=== PATIENT | female | born 1960 | race Hispanic/Latino ===

== ENCOUNTER 2020-01-12 18:30 | Observation (INO) | payer SELFPAY ==
[~2020-01-12] VITALS: Ht 157.5 cm; Wt 81.2 kg
--- OUTSIDE RECORDS SUMMARY | 2020-01-12 18:32 | XMS REPORT ---
Author Author [facility] Organization [facility] Address Unknown Phone Unavailable Care Team Providers Care Equip Maint Eng Name Role Phone Unavailable Unavailable Problems This patient has no known problems. Allergies, Adverse Reactions, Alerts This patient has no known allergies or adverse reactions. Medications This patient has no known medications. Encounters Start Date/Time End Date/Time Encounter Type Admission Type [facility] Care Department Encounter ID 2018-10-18 00:00:00 2018-10-18 00:00:00 Outpatient [facility] [id number] 2018-10-12 00:00:00 2018-10-12 00:00:00 Outpatient [facility] [id number] 2018-08-27 00:00:00 2018-08-27 00:00:00 Outpatient [facility] [id number] 2018-07-29 00:00:00 2018-07-29 00:00:00 Outpatient [facility] [id number] 2018-07-27 09:54:25 2018-07-27 09:54:25 Outpatient [facility] [id number] 2018-07-22 00:00:00 2018-07-22 00:00:00 Outpatient [facility] [id number] 2018-07-20 00:00:00 2018-07-20 00:00:00 Outpatient [facility] [id number] 2018-07-16 07:56:06 2018-07-16 07:56:06 Outpatient [facility] [id number] 2018-07-16 00:00:00 2018-07-16 00:00:00 Outpatient [facility] [id number] 2018-05-26 10:12:51 2018-05-26 10:12:51 Outpatient [facility] [id number] 2018-05-20 13:38:58 2018-05-20 13:38:58 Outpatient [facility] [id number] 2018-05-20 11:30:42 2018-05-20 11:30:42 Outpatient [facility] [id number] 2018-05-06 00:00:00 2018-05-06 00:00:00 Outpatient [facility] [id number] 2018-05-04 07:48:47 2018-05-04 07:48:47 Outpatient [facility] [id number] 2018-02-24 07:45:13 2018-02-24 07:45:13 Outpatient [facility] [id number] 2018-02-16 11:19:31 2018-02-16 11:19:31 Outpatient [facility] [id number] 2018-02-16 08:56:55 2018-02-16 08:56:55 Outpatient [facility] [id number] 2018-02-09 07:23:30 2018-02-09 07:23:30 Outpatient [facility] [id number] 2017-11-24 00:00:00 2017-11-24 00:00:00 Outpatient [facility] [id number] 2017-11-16 14:30:01 2017-11-16 14:30:01 Outpatient [facility] [id number] 2017-11-16 13:06:55 2017-11-16 13:06:55 Outpatient [facility] [id number] 2017-11-02 00:00:00 2017-11-02 00:00:00 Outpatient [facility] [id number] 2017-10-15 14:50:51 2017-10-15 14:50:51 Outpatient [facility] [id number] 2017-10-14 14:51:28 2017-10-14 14:51:28 Emergency [facility] [id number] 2017-10-14 14:36:47 2017-10-14 14:36:47 Emergency [facility] [id number] 2017-10-14 13:50:37 2017-10-14 13:50:37 Outpatient [facility] [id number] 2017-08-01 11:53:45 2017-08-01 11:53:45 Emergency [facility] [id number]
[2020-01-12 19:14] LABS: BASOPHILS # (AUTO) 0.1 (0.0-0.1); BASOPHILS % 0.4 % (0.0-1.0); EOSINOPHILS # (AUTO) 0.3 (0.0-0.4); EOSINOPHILS % 1.6 % (0.0-6.0); HEMATOCRIT 40.3 % (34.2-44.1); HEMOGLOBIN 13.6 g/dL (12.0-16.0); LYMPHOCYTES # (AUTO) 2.9 (1.0-3.2); LYMPHOCYTES % 17.7 % (18.0-39.1); MEAN CORPUSCULAR HEMOGLOBIN 29.1 pg (28-32); MEAN CORPUSCULAR HGB CONC 33.7 g/dL (31-35); MEAN CORPUSCULAR VOLUME 86.1 fL (81-99); MONOCYTES # (AUTO) 1.2 (0.2-0.8); MONOCYTES % 7.2 % (4.4-11.3); NEUTROPHILS # (AUTO) 11.8 (2.1-6.9); NEUTROPHILS % 72.6 % (38.7-80.0); PLATELET COUNT 353 x10e3/uL (140-360); RED BLOOD COUNT 4.68 x10e6/uL (3.6-5.1); RED CELL DISTRIBUTION WIDTH 13.4 % (11.7-14.4)
[2020-01-12 19:22] LABS: INR 0.9; PROTHROMBIN TIME 12.7 seconds (11.9-14.5)
[2020-01-12 19:23] LABS: PARTIAL THROMBOPLASTIN TIME 28.1 seconds (23.8-35.5)
[2020-01-12 19:32] LABS: ALANINE AMINOTRANSFERASE 32 IU/L (0-55); ALBUMIN 4.3 g/dL (3.5-5.0); ALBUMIN/GLOBULIN RATIO 1.2 (0.8-2.0); ALKALINE PHOSPHATASE 110 IU/L (40-150); ANION GAP 15.7 mmol/L (8-16); BLOOD UREA NITROGEN 18 mg/dL (7-26); BUN/CREATININE RATIO 20 (6-25); CALCIUM 10.4 mg/dL (8.4-10.2); CARBON DIOXIDE 22 mmol/L (22-29); CHLORIDE 103 mmol/L (98-107); CREATINE KINASE 36 IU/L (29-168); EST GLOMERULAR FILTRATION RATE > 60 ML/MIN (60-); GLUCOSE 223 mg/dL (74-118); POTASSIUM 3.7 mmol/L (3.5-5.1); SODIUM 137 mmol/L (136-145)
[2020-01-12] MEDS ORDERED: SODIUM CHLORIDE 0.9% 1000ML 1,000 ML IV STA (19:32)
--- NOTE | 2020-01-12 19:55 | Diagnostic Imaging Report ---
History: Head pain Comparison studies: None Technique: Axial images were obtained from the skull base to the vertex. Coronal and sagittal reconstructions obtained from the axial data. Dose modulation, iterative reconstruction, and/or weight based adjustment of the mA/kV was utilized to reduce the radiation dose to as low as reasonably achievable. Findings: Scalp/skull: No abnormalities. No fractures, blastic or lytic lesions. Extra-axial spaces: No masses. No fluid collections. Brain sulci: Appropriate for age. Ventricles: Normal in size and configuration. No hydrocephalus. Parenchyma: No abnormal densities. No masses, hemorrhage, acute or chronic cortical vascular insults. Sellar/suprasellar region: No abnormalities Craniocervical junction: Patent foramen magnum. No Chiari one malformation. Atherosclerotic calcifications of the carotid siphons. IMPRESSION: No acute abnormalities . Signed by: DR Ector Cedillo M.D. on 01/12/2020 7:52 PM
--- NOTE | 2020-01-12 20:05 | Diagnostic Imaging Report ---
EXAMINATION: CHEST SINGLE (PORTABLE) INDICATION: COMPARISON: None FINDINGS: AP view TUBES and LINES: None. LUNGS/PLEURA: Lungs are well inflated. There is no evidence of pneumonia or pulmonary edema.. There is no pleural effusion or pneumothorax. HEART AND MEDIASTINUM: The cardiomediastinal silhouette is unremarkable. BONES AND SOFT TISSUES: No acute osseous lesion. Soft tissues are unremarkable. UPPER ABDOMEN: No free air under the diaphragm. IMPRESSION: No acute thoracic abnormality. Signed by: Ray Jane MD on 01/12/2020 8:02 PM
[2020-01-12 20:09] LABS: BILIRUBIN,URINE SMALL (NEGATIVE); CLARITY,URINE CLOUDY (CLEAR); COLOR,URINE YELLOW (YELLOW); KETONES,URINE TRACE (NEGATIVE); LEUKOCYTE ESTERASE ,URINE NEGATIVE (NEGATIVE); NITRITE,URINE NEGATIVE (NEGATIVE); PROTEIN,URINE DIPSTICK 1+ (NEGATIVE); URINE UROBILINOGEN 0.2 mg/dL (0.2 - 1)
[2020-01-12 20:19] LABS: AMORPHOUS SEDIMENT,URINE FEW (FEW); BACTERIA,URINE MODERATE /HPF; EPITHELIAL CELLS,URINE FEW /LPF; WBC,URINE (MAN) 0-5 /HPF (0-5)
[2020-01-12] MEDS ORDERED: MORPHINE SULFATE INJ 4 MG/ML INJ 1ML IV PRN (21:00)
[2020-01-12] MEDS ORDERED: CEFTRIAXONE SOD 1 GM/NS 50 ML 50 ML IV SCH (21:00)
[2020-01-12] MEDS ORDERED: ASPIRIN 81 MG CHEW TAB PO ONE (21:00)
[2020-01-12] MEDS ORDERED: MORPHINE SULFATE 2 MG/ML SYR 1ML IV PRN (21:00)
[2020-01-12] MEDS ORDERED: ONDANSETRON HCL INJ 2MG/ML 2ML 2 MG/ML VIAL IV PRN (21:00)
[2020-01-12] MEDS ORDERED: SODIUM CHLORIDE 0.9% 1000ML 1,000 ML ONE (23:25)
[2020-01-13] MEDS ORDERED: GLIPIZIDE10 MG PO (01:53)
[2020-01-13] MEDS ORDERED: TRADJENTA5 MG PO (01:53)
[2020-01-13] MEDS ORDERED: PAROXETINE HCL10 MG PO (01:53)
[2020-01-13] MEDS ORDERED: FLUTICASONE PRO16 GM IN (01:53)
[2020-01-13] MEDS ORDERED: ALPRAZOLAM0.25 MG PO (01:53)
[2020-01-13] MEDS ORDERED: LISINOPRIL-HCT1 EACH PO (01:53)
[2020-01-13] MEDS ORDERED: METFORMIN HCL500 M1 PO (01:53)
[2020-01-13 05:15] LABS: BASOPHILS % 0.3 % (0.0-1.0); EOSINOPHILS # (AUTO) 0.2 (0.0-0.4); EOSINOPHILS % 2.7 % (0.0-6.0); HEMATOCRIT 33.8 % (34.2-44.1); HEMOGLOBIN 11.2 g/dL (12.0-16.0); LYMPHOCYTES # (AUTO) 2.4 (1.0-3.2); MEAN CORPUSCULAR HEMOGLOBIN 28.7 pg (28-32); MEAN CORPUSCULAR HGB CONC 33.1 g/dL (31-35); MEAN CORPUSCULAR VOLUME 86.7 fL (81-99); MONOCYTES # (AUTO) 0.7 (0.2-0.8); MONOCYTES % 8.3 % (4.4-11.3); NEUTROPHILS # (AUTO) 5.5 (2.1-6.9); NEUTROPHILS % 61.5 % (38.7-80.0); PLATELET COUNT 217 x10e3/uL (140-360); RED CELL DISTRIBUTION WIDTH 13.6 % (11.7-14.4)
[2020-01-13 05:39] LABS: CREATINE KINASE 28 IU/L (29-168)
--- NOTE | 2020-01-13 06:02 | Diagnostic Imaging Report ---
EXAMINATION: CHEST SINGLE (PORTABLE) INDICATION: Chest pain COMPARISON: None FINDINGS: AP view TUBES and LINES: None. LUNGS: Lungs are well inflated. Lungs are clear. There is no evidence of pneumonia or pulmonary edema. PLEURA: No pleural effusion or pneumothorax. HEART AND MEDIASTINUM: The cardiomediastinal silhouette is unremarkable. BONES AND SOFT TISSUES: No acute osseous lesion. Soft tissues are unremarkable. UPPER ABDOMEN: No free air under the diaphragm. IMPRESSION: No acute thoracic radiographic abnormality. Signed by: Rafi Manuel MD on 01/13/2020 5:59 AM
[2020-01-13 06:14] LABS: ALANINE AMINOTRANSFERASE 25 IU/L (0-55); ALBUMIN 3.5 g/dL (3.5-5.0); ALKALINE PHOSPHATASE 76 IU/L (40-150); ANION GAP 14.7 mmol/L (8-16); BLOOD UREA NITROGEN 17 mg/dL (7-26); BUN/CREATININE RATIO 25 (6-25); CALCIUM 8.9 mg/dL (8.4-10.2); CARBON DIOXIDE 22 mmol/L (22-29); CHLORIDE 106 mmol/L (98-107); CREATININE, SERUM 0.68 mg/dL (0.57-1.11); EST GLOMERULAR FILTRATION RATE > 60 ML/MIN (60-); GLUCOSE 130 mg/dL (74-118); POTASSIUM 3.7 mmol/L (3.5-5.1); SODIUM 139 mmol/L (136-145)
[2020-01-13] MEDS ORDERED: DOCUSATE SODIUM 100 MG CAP PO PRN (07:15)
--- NOTE | 2020-01-13 07:24 | NUR ---
H&P cc: chest pain HPI: 59yoF, PCP none, developed left sided chest discomfort and left shoulder discomfort and left face pain, ongoing for 1 month. Found to have UTI. PMH: DM2, HTN, Mood d/o PSHx: none Allergies; see emr FH/SH; single; no cigs; meds; see MAR ROS: no f/c/s/N/V/D/FRASER/skin rash/diziness/leg pain/confusion v/s; revd PE nad anicteric ns1s2 modbs soft nt nd left chest wall tenderness; left shoulder tender no edema; awake; skin dry n. affect labs/meds revd A/P: Atypical CP- CE negative x2; check lipids; ASA; echo UTI- treat with ceftriaxone HTN- restart home meds DM2- hab1c/lipids Mood d/o- restart home med Prop: lovenox; pepcid Disp; if echo negative, will treat for musculoskeletal pain. Brian Wilder MD, PhD.
[2020-01-13] MEDS ORDERED: CEFTRIAXONE SOD 1 GM/NS 50 ML 50 ML IV SCH (07:30)
[2020-01-13 07:51] LABS: CHOL/HDL RATIO 3.9 (3.0-3.6)
[2020-01-13] MEDS: FAMOTIDINE 20 MG TAB PO SCH ×2 (07:52→16:50)
--- NOTE | 2020-01-13 08:33 | NUR ---
Recvd patient from ER, AAOx3, Not in any distress, denies any SOB, C/O generalized body pain rating 4/10, on Tele monitoring. Skin intact, call light in reach, keep monitoring
[2020-01-13 08:49] VITALS: BP 116/73
[2020-01-13] MEDS: NON-FORMULARY MEDICATION (Linagliptin (Tradjenta) 5 MG) PO SCH (09:00)
[2020-01-13] MEDS: ALPRAZOLAM 0.25 MG TAB PO SCH (09:30)
[2020-01-13] MEDS: HYDROCHLOROTHIAZIDE 25 MG TAB PO SCH ×2 (09:30→16:50)
[2020-01-13] MEDS: LISINOPRIL 20 MG TAB PO SCH ×2 (09:30→16:50)
[2020-01-13] MEDS: ASPIRIN 325 MG TAB PO SCH (09:31)
[2020-01-13 11:55] VITALS: BP 110/57
[2020-01-13] MEDS: PAROXETINE HCL 20 MG TAB PO SCH (14:40)
[2020-01-13] MEDS: FLUTICASONE PROPIONATE NASAL SPRAY NS SCH (14:40)
[2020-01-13 14:44] LABS: CREATINE KINASE 28 IU/L (29-168)
[2020-01-13 15:35] VITALS: BP 121/72
[2020-01-13] MEDS: ENOXAPARIN SOD INJ 40 MG/0.4 ML SYR SC SCH (18:12)
[2020-01-13] MEDS: MELOXICAM 7.5 MG TAB PO SCH (18:30)
[2020-01-13] MEDS: ACETAMINOPHEN 325 MG TAB PO PRN ×2 (19:41→20:11)
--- NOTE | 2020-01-13 19:44 | NUR ---
recieved pt in bed awake a/o x3 c/o FRASER, med per NOV. Entry Level Management in to see pt. Bed in low position, call light in reach as well as personal items. Will cont to mon
[2020-01-13 20:00] VITALS: BP 142/83
[2020-01-13] MEDS ORDERED: SODIUM CHLORIDE 0.9% 250ML 250 ML ONE (20:50)
[2020-01-13 21:00] VITALS: BP 142/83
[2020-01-13] MEDS ORDERED: ZOLPIDEM TARTRATE 5 MG TAB PO PRN (21:00)
[2020-01-13] MEDS: CEFTRIAXONE SOD 1 GM/NS 50 ML 50 ML IV SCH (21:02)
[2020-01-14] VITALS (8 sets, daily range): BP systolic 104–158; BP diastolic 55–72
--- NOTE | 2020-01-14 00:16 | Consultation ---
DATE OF CONSULTATION: 01/13/2020 Cardiology Consultation CONSULTING PHYSICIAN: Amado Herron MD, Interventional Cardiology. REASON FOR CONSULTATION: Chest discomfort. HISTORY OF PRESENT ILLNESS: A pleasant 59-year-old woman with history of type 2 diabetes mellitus, hypertension, dyslipidemia, morbid obesity, presents with complaints of left-sided neck discomfort, worse with movements of rotation of head and movements of left upper extremity. She also endorses episodes of palpitations, which at time occur with exertion. She denies any exertional component to chest discomfort or dyspnea on exertion. She has observed partial relief of neck and upper chest discomfort with morphine. REVIEW OF SYSTEMS: A 12 system review is negative except for as noted above. ALLERGIES: NO KNOWN DRUG ALLERGIES. PAST MEDICAL HISTORY: As per HPI. SOCIAL HISTORY: No smoking, alcohol, or drugs. FAMILY HISTORY: Noncontributory. PHYSICAL EXAMINATION: VITAL SIGNS: Temperature 98.2, heart rate 72, respiratory rate 18, blood pressure 121/72, O2 saturation 98% on room air. GENERAL: No acute distress. Alert. NECK: No JVD. CHEST: Clear to auscultation. CARDIOVASCULAR: Regular rate and rhythm. Normal S1 and S2. No S3. No S4. No murmurs. No rubs. ABDOMEN: Soft. Bowel sounds positive. EXTREMITIES: No cyanosis, clubbing, or edema. CARDIOVASCULAR MEDICATIONS: Reviewed. Lovenox 40 mg subcu daily, hydrochlorothiazide 12.5 mg b.i.d., lisinopril 20 mg b.i.d., aspirin 325 mg daily. STUDIES: Reviewed. White blood cells 8.9, hemoglobin 11.2, and platelets 217. INR 0.9, PT 12.7, PTT 28. Troponin I negative x3. BNP less than 10. Sodium 139, potassium 3.7, chloride 106, bicarbonate 22, BUN 17, creatinine 0.68, glucose 130, albumin 3.5. Chest x-ray, no acute thoracic abnormality. Head CT, no acute abnormality. Telemetry, sinus rhythm. ASSESSMENT: 1. Chest discomfort and neck discomfort with musculoskeletal type features. 2. Diabetes mellitus type 2. 3. Hypertension. 4. Dyslipidemia. 5. Palpitation. RECOMMENDATIONS: 1. Trial of analgesics and muscle relaxants advised. 2. Blood pressure currently at goal. 3. The patient rule out for DE with serial cardiac enzymes. 4. Keep on telemetry overnight to rule out arrhythmogenic component, so far in sinus rhythm. 5. Outpatient stress test. MD MICHEAL Brandon/MODL /[id number]
--- NOTE | 2020-01-14 05:45 | NUR ---
IM- progress note ROS: see below ROS: no f/c/s/N/V/D/FRASER/skin rash/diziness/leg pain/confusion v/s; revd PE nad anicteric ns1s2 modbs soft nt nd left chest wall tenderness; left shoulder tender no edema; awake; skin dry n. affect labs/meds revd A/P: Atypical CP- CE negative x2; check lipids; ASA; echo UTI- treat with ceftriaxone HTN- restart home meds DM2- hab1c/lipids Mood d/o- restart home med Prop: lovenox; pepcid Disp; if echo negative, will treat for musculoskeletal pain. 5-2 flexeril; outpt stress test planned. Hba1c/LDL 6.7/93 Brian Wilder MD, PhD.
[2020-01-14] MEDS ORDERED: MELOXICAM7.5 MG PO (05:47)
[2020-01-14] MEDS ORDERED: FAMOTIDINE20 MG PO (05:47)
[2020-01-14] MEDS ORDERED: KEFLEX500 MG PO (05:47)
[2020-01-14] MEDS ORDERED: ASPIR 8181 MG PO (05:47)
[2020-01-14] MEDS ORDERED: CYCLOBENZAPRINE5 MG PO (05:49)
--- NOTE | 2020-01-14 06:54 | NUR ---
DAY 2 OBSERVATION. MESSAGE LEFT W/ DR. MYERS REQUESTING DC PLAN, PT DOES NOT APPEAR TO MEET INPATIENT STATUS. AWAITING REPLY.
--- NOTE | 2020-01-14 07:00 | NUR ---
BEDSIDE SHIFT REPORT RECEIVED FROM THE ROLLER HAND RN. EDUCATED PT ABOUT FALL PRECAUTIONS. PT VERBALIZED UNDERSTANDING. CALL LIGHT WITH IN EASY REACH. INSTRUCTED PT TO USE CALL LIGHT FOR ALL THE NEEDS. BED IS LOW AND LOCKED. SIDE RAILS X2. PT DENIES NEEDS AT THIS TIME.
--- NOTE | 2020-01-14 07:29 | NUR ---
SPOKE W/ DR. MYERS AND DISCUSSED PT STATUS AND DC PLAN. HE STATED HE IS DISCHARGING THE PT HOME TODAY.
[2020-01-14] MEDS: FAMOTIDINE 20 MG TAB PO SCH ×2 (08:30→16:26)
[2020-01-14] MEDS: NON-FORMULARY MEDICATION (Linagliptin (Tradjenta) 5 MG) PO SCH (09:00)
[2020-01-14] MEDS: CYCLOBENZAPRINE HCL 10 MG TAB PO SCH ×4 (09:00→22:03)
[2020-01-14] MEDS: ASPIRIN 325 MG TAB PO SCH (09:18)
[2020-01-14] MEDS: HYDROCHLOROTHIAZIDE 25 MG TAB PO SCH ×2 (09:18→16:26)
[2020-01-14] MEDS: ALPRAZOLAM 0.25 MG TAB PO SCH (09:19)
[2020-01-14] MEDS: MELOXICAM 7.5 MG TAB PO SCH (09:19)
[2020-01-14] MEDS: LISINOPRIL 20 MG TAB PO SCH ×2 (09:19→16:26)
[2020-01-14] MEDS: PAROXETINE HCL 20 MG TAB PO SCH (09:20)
[2020-01-14] MEDS: FLUTICASONE PROPIONATE NASAL SPRAY NS SCH (10:00)
--- NOTE | 2020-01-14 10:00 | NUR ---
PT REFUSED MORPHINE PAIN MED.
--- NOTE | 2020-01-14 12:30 | NUR ---
PT C/O DIZZINESS AND PAIN ON UPPER AND LOWER EXTREMITIES. PAGED DR. MYERS AND INFORMED THE SAME.
--- NOTE | 2020-01-14 12:40 | NUR ---
CANCEL DISCHARGE ORDER PER DR. MYERS. MONITOR THE PT ONE MORE DAY.
[2020-01-14] MEDS: ACETAMINOPHEN 325 MG TAB PO PRN ×2 (12:53→20:00)
--- NOTE | 2020-01-14 16:00 | NUR ---
PT C/O PRESSURE AND PAIN ON UPPER LOWER EXTREMITIES. PAGED DR. MYERS AND REPORTED THE SAME. PT IS AAOX4. PT DENIES NEEDS AT THIS TIME.
[2020-01-14] MEDS: ENOXAPARIN SOD INJ 40 MG/0.4 ML SYR SC SCH (16:26)
--- NOTE | 2020-01-14 19:20 | NUR ---
BEDSIDE SHIFT REPORT GIVEN TO THE CNC MACHINE PROGRAMMER RN. PT DENIED FURTHER NEEDS.
--- NOTE | 2020-01-14 19:28 | NUR ---
Received patient in bed awake a/ox3 c/o pressure and general discomfort. Bed in low position, call rodriguez and personal items in reach. Will cont to mon
[2020-01-14] MEDS: CEFTRIAXONE SOD 1 GM/NS 50 ML 50 ML IV SCH (22:04)
[2020-01-15] VITALS: BP 116/65
[2020-01-15] MEDS: ACETAMINOPHEN 325 MG TAB PO PRN ×2 (01:50→08:30)
--- NOTE | 2020-01-15 02:11 | Progress Note ---
DATE: 01/14/2020 Cardiology Progress Note SUBJECTIVE: No chest pain. Neck discomfort, improved. OBJECTIVE: VITAL SIGNS: Temperature 97 degrees, heart rate 73, blood pressure 158/62, respiratory rate 20, O2 saturation 94%, BMI 32.7. GENERAL: No acute distress, alert. NECK: No JVD. CHEST: Clear to auscultation. CARDIOVASCULAR: Regular rate and rhythm. Normal S1, S2. ABDOMEN: Soft. Bowel sounds positive. EXTREMITIES: No edema. CARDIOVASCULAR MEDICATIONS: Reviewed. Lovenox 40 mg subcu daily, lisinopril 20 mg b.i.d., hydrochlorothiazide 12.5 mg b.i.d., aspirin 325 mg daily. STUDIES: Troponin I negative x3. BNP less than 10. Potassium 3.7, BUN 22, creatinine 0.68, glucose 130. White blood cells 8.9, hemoglobin 11.2, platelets 217. TELEMETRY: In sinus rhythm. ASSESSMENT AND PLAN: 1. A 59-year-old woman with chest pain, atypical with musculoskeletal features, type 2 diabetes mellitus with an A1c of 6.7, hypertension, dyslipidemia, palpitations, morbid obesity. Recommend continue current cardiovascular medications. 2. Trial of analgesics and muscle relaxants. 3. Preserved left ventricular systolic function with LVEF more than 70%, impaired LV relaxation, trace tricuspid mitral and pulmonic regurgitation on echocardiogram. Recommend continue risk factor modification and outpatient stress test at a later date. MD MICHEAL Brandon/CARITOL /[id number]
[2020-01-15 04:00] VITALS: BP 130/64
--- NOTE | 2020-01-15 06:41 | NUR ---
Met with Lisy Griffin RN to see why pt did not discharge home yesterday. She stated pt c/o pain to arms and legs, and Dr. Wilder stated to monitor her overnight, and plan discharge this morning.
--- NOTE | 2020-01-15 07:22 | NUR ---
PATIENT IN BED WITH HEAD OF BED ELEVATED WATCHING TV, NO DISTRESS NOTED. BED IN LOWER POSITION, CALL LIGHT AT REACH.
[2020-01-15 07:30] VITALS: BP 121/53
[2020-01-15] MEDS: FAMOTIDINE 20 MG TAB PO SCH (07:30)
[2020-01-15 08:29] VITALS: BP 121/53
[2020-01-15] MEDS: NON-FORMULARY MEDICATION (Linagliptin (Tradjenta) 5 MG) PO SCH (09:00)
[2020-01-15] MEDS: MELOXICAM 7.5 MG TAB PO SCH (09:08)
[2020-01-15] MEDS: LISINOPRIL 20 MG TAB PO SCH (09:08)
[2020-01-15] MEDS: HYDROCHLOROTHIAZIDE 25 MG TAB PO SCH (09:08)
[2020-01-15] MEDS: CYCLOBENZAPRINE HCL 10 MG TAB PO SCH ×2 (09:08→14:52)
[2020-01-15] MEDS: PAROXETINE HCL 20 MG TAB PO SCH (09:08)
[2020-01-15] MEDS: ASPIRIN 325 MG TAB PO SCH (09:08)
[2020-01-15] MEDS: ALPRAZOLAM 0.25 MG TAB PO SCH (09:08)
[2020-01-15] MEDS: FLUTICASONE PROPIONATE NASAL SPRAY NS SCH (09:11)
--- NOTE | 2020-01-15 11:48 | NUR ---
PATIENT SITTING UP IN BED TALKING ON THE PHONE, NO COMPLAIN VOICED. CALL LIGHT AT REACH.
[2020-01-15 11:52] VITALS: BP 115/66
--- NOTE | 2020-01-15 15:30 | NUR ---
PATIENT DISCHARGED HOME. DISCHARGE INSTRUCTIONS, PRESCRIPTIONS, AND FOLLOW UP GIVEN TO PATIENT, SHE VERBALIZED UNDERSTANDING. IV TO LEFT AC REMOVED WITH TIP INTACT. ALL PERSONAL ITEMS TAKEN WITH PATIENT. REFUSED WHEEL CHAIR, BUT WAS ACCOMPANIED BY HOSPITAL STAFF TO FRONT LOBBY IN STABLE CONDITION.
--- NOTE | 2020-01-15 16:27 | Progress Note ---
DATE: Cardiology Progress Note SUBJECTIVE: Denies any chest pain or shortness of breath. OBJECTIVE: VITAL SIGNS: Temperature 97.5, heart rate 64, blood pressure 121/53, respiratory rate 20, O2 saturation 99%, BMI 32.7. GENERAL: In no acute distress, alert. NECK: No JVD. CHEST: Clear to auscultation. CARDIOVASCULAR: Regular rate and rhythm. Normal S1, S2. ABDOMEN: Soft. Bowel sounds positive. EXTREMITIES: No edema. CARDIOVASCULAR MEDICATIONS: Reviewed. Lovenox 40 mg subcu daily, lisinopril 20 mg b.i.d., hydrochlorothiazide 12.5 mg daily, aspirin 325 mg daily. STUDIES: Reviewed. Creatinine 0.6. Hemoglobin 11.2, platelets 217. ASSESSMENT AND PLAN: 1. A 59-year-old woman presents with atypical chest discomfort, neck discomfort, worse with movements, musculoskeletal type pattern. 2. Hypertension, diabetes, dyslipidemia. Recommend continue current cardiovascular medications. Outpatient stress test. Okay to discharge from a cardiovascular standpoint. MD MICHEAL Brandon/MAMADOU /[id number]
--- NOTE | 2020-01-15 17:56 | NUR ---
D/C summary Principal Dx: Atypical CP- CE negative x2; check lipids; ASA; echo UTI- treat with ceftriaxone Secondary dx: HTN- restart home meds DM2- hab1c/lipids Mood d/o- restart home med Prop: lovenox; pepcid Disp; if echo negative, will treat for musculoskeletal pain. 5-2 flexeril; outpt stress test planned. Hba1c/LDL 6.7/93 d/c home f/u pcp 1 week and 2 days for stress test stable d/c>35mins Brian Wilder MD, PhD.
== END 2020-01-15 15:26 | disposition home or self-care (01) ==
LOC: ER 18:30 → ERHOLD 20:51 → MED/SURG3 01-13 08:10
PROVIDERS: ADMIT Internal Medicine; ATTEND Internal Medicine
DX: R07.89 Other chest pain (principal); N39.0 Urinary tract infection, site not specified; I10 Essential (primary) hypertension; E11.9 Type 2 diabetes mellitus without complications; F39 Unspecified mood [affective] disorder; E78.5 Hyperlipidemia, unspecified; E66.01 Morbid (severe) obesity due to excess calories; R00.2 Palpitations; Z68.32 Body mass index [BMI] 32.0-32.9, adult
CPT/HCPCS: 36415 ×4; 70450; 71045 ×2; 80053 ×2; 80061; 81001; 82550 ×2; 82553 ×2; 82948 ×3; 83036; 83605; 83880; 84484 ×2; 85025 ×2; 85610; 85730; 87040; 87086; 93005; 93306; 99284; G0378 ×4; J0696 ×3; J1650 ×2; J2270; J2405; J7030; J7050

== ENCOUNTER 2020-01-23 21:42 | Emergency (ER) | payer SELFPAY ==
[~2020-01-23] VITALS: Ht 157.5 cm; Wt 81.2 kg
[~2020-01-23 21:42] MED LIST: ALPRAZOLAM0.25 MG PO; ASPIR 8181 MG PO; CYCLOBENZAPRINE5 MG PO; FAMOTIDINE20 MG PO; FLUTICASONE PRO16 GM IN; GLIPIZIDE10 MG PO; KEFLEX500 MG PO; LISINOPRIL-HCT1 EACH PO; MELOXICAM7.5 MG PO; METFORMIN HCL500 M1 PO; PAROXETINE HCL10 MG PO; TRADJENTA5 MG PO
--- OUTSIDE RECORDS SUMMARY | 2020-01-23 21:45 | XMS REPORT | Clinical Summary ---
Author Author [facility] Organization [facility] Address Unknown Phone Unavailable Care Team Providers Care Commission Sales Associate Name Role Phone Brigette Kaufman MD PCP Allergies Comments Active Allergy Reactions Severity Noted Date Hydroxyzine Hcl Nausea and 02/16/2018 Vomiting Leg numbness Atorvastatin Other 07/27/2018 Medications End Date Status Medication Sig Dispensed Refills Start Date Active aspirin (ASPIRIN) 81 mg Chew and 30 tablet 2 chewable swallow 1 8 tabletIndications: Chest tablet by pressure mouth daily. Active blood glucose Use as 1 Kit 0 meterIndications: Type II directed.. 8 diabetes mellitus, well controlled Active lancets 28 Use 2 times 100 Each 1 gaugeIndications: Type II weekly as 8 diabetes mellitus, well directed. controlled Active blood glucose test 2 times 50 Each 3 05/20/2 01 stripsIndications: Type weekly Use 2 8 II diabetes mellitus, times weekly well controlled (once per day on Thu,) to test blood sugar. Active ibuprofen (MOTRIN) 400 mg Take 1 tablet 270 tablet 1 tabletIndications: by mouth 8 Chronic left-sided every 6 hours headaches as needed for Pain With food. Active azelastine (OPTIVAR) 0.05 Instill 1 6 mL 3 % ophthalmic Drop in each 8 solutionIndications: Eye eye 2 times irritation daily. Active blood glucose meter Use as 1 Kit 0 (PRECISION XTRA directed.. 9 GLUCOMETER)Indications: Uncontrolled type 2 diabetes mellitus without complication, without long-term current use of insulin Active blood glucose (PRECISION Use 2 times 50 Each 3 0 XTRA TEST STRIPS) test weekly (once 9 stripsIndications: per day on Uncontrolled type 2 Thu,) to diabetes mellitus without test blood complication, without sugar. long-term current use of insulin Active lancets 28 Use 2 times 100 Each 1 gaugeIndications: weekly as 9 Uncontrolled type 2 directed. diabetes mellitus without complication, without long-term current use of insulin Active lisinopriL-hydrochlorothi Take 2 180 tablet 3 azide (ZESTORETIC) tablets by 9 20-12.5 mg per mouth daily tabletIndications: For blood Essential hypertension pressure. Active glipiZIDE (GLUCOTROL) 10 Take 1 tablet 180 tablet 3 mg tabletIndications: by mouth 2 9 Uncontrolled type 2 times daily diabetes mellitus without (before complication, without meals) For long-term current use of diabetes. insulin [place]. Active linaGLIPtin (TRADJENTA) 5 Take 1 tablet 90 tablet 3 mg tabletIndications: by mouth 9 Uncontrolled type 2 daily For diabetes mellitus without diabetes. complication, without [place] long-term current use of label. insulin Active metFORMIN (GLUCOPHAGE XR) Take 2 360 tablet 3 500 mg ER extended tablets by 9 release mouth 2 times tabletIndications: Type daily For II diabetes mellitus, diabetes. well controlled Active FLUoxetine (PROZAC) 20 mg Take 1 tab po 180 capsule 1 capsuleIndications: daily for one 9 Anxiety, generalized week, then 2 daily for anxiety. Active SUMAtriptan (IMITREX) 50 Take 1 tablet 9 tablet 3 mg tabletIndications: by mouth at 9 Chronic left-sided onset of headaches headache. Repeat after 2 hours if needed. Maximum 200mg/24 hours.. Active pravastatin (PRAVACHOL) Take 1 tablet 90 tablet 3 20 mg tabletIndications: by mouth at 9 Pure hypercholesterolemia bedtime nightly For cholesterol. Active ergocalciferol (VITAMIN Take 1 12 capsule 2 D2) 1,250 mcg (50,000 capsule by 0 unit) capsuleIndications: mouth weekly. Vitamin D deficiency Active amitriptyline (ELAVIL) 25 Take 2 60 tablet 3 mg tabletIndications: tablets by 0 Complicated migraine mouth at bedtime nightly. 02/17/2019 Discontinued (Therapy comple donnell) ACETAMINOPHEN (TYLENOL Take by 0 OR) mouth. 05/19/2019 Discontinued (Reorder) FLUoxetine (PROZAC) 20 mg Take 1 tab po 180 capsule 1 capsuleIndications: daily for one 8 Anxiety, generalized week, then 2 daily for anxiety. 02/17/2019 Discontinued (Reorder) metFORMIN (GLUCOPHAGE XR) Take 2 360 tablet 3 500 mg ER extended tablets by 8 release mouth 2 times tabletIndications: Type daily For II diabetes mellitus, diabetes. well controlled 02/17/2019 Discontinued (Therapy comple donenll) pravastatin (PRAVACHOL) Take 1 tablet 30 tablet 3 20 mg tabletIndications: by mouth at 8 Pure hypercholesterolemia bedtime nightly For cholesterol 02/17/2019 Discontinued (Therapy comple donnell) ciclesonide (ZETONNA) 37 Use 1 [place] 6.1 g 5 1 mcg/actuation nasal HFA in each 8 inhalerIndications: nostril Seasonal allergic daily. rhinitis due to pollen 02/17/2019 Discontinued (Reorder) ergocalciferol (VITAMIN Take 1 24 capsule 1 D2) 50,000 unit capsule by 9 capsuleIndications: mouth 2 times Vitamin D deficiency weekly. 02/17/2019 Discontinued (Dose adjustmen t) lisinopril-hydrochlorothi Take 1 tablet 90 tablet 0 azide (PRINZIDE, by mouth 9 ZESTORETIC) 20-12.5 mg daily For per tabletIndications: blood Numbness, Chest pressure pressure 06/29/2019 Discontinued (Reorder) ergocalciferol (VITAMIN Take 1 12 capsule 2 D2) 50,000 unit capsule by 9 capsuleIndications: mouth weekly. Vitamin D deficiency 02/24/2019 terconazole (TERAZOL 3) Insert 1 20 g 0 0.8 % vaginal Applicator 9 creamIndications: Yeast vaginally at vaginitis bedtime nightly for 3 days. 08/09/2019 Discontinued (Dose adjustmen t) SUMAtriptan (IMITREX) 25 Take 1 tablet 9 tablet 3 mg tabletIndications: by mouth at 9 Chronic left-sided onset of headaches headache. Repeat after 2 hours if needed. Maximum 200mg/24 hours.. 10/26/2019 Discontinued (Reorder) ergocalciferol (VITAMIN Take 1 12 capsule 2 D2) 50,000 unit capsule by 9 capsuleIndications: mouth weekly. Vitamin D deficiency 11/29/2019 Discontinued amitriptyline (ELAVIL) 25 Please take 60 tablet 5 mg tabletIndications: medication as 9 Complicated migraine per instructions given to you in clinic and titrate upto 2 tablets at bedtime.. 11/08/2019 promethazine (PHENERGAN) Take 1/ 15 tablet 1 1 25 mg tabletIndications: tablet by 9 Complicated migraine mouth daily for 60 days. Active Problems Problem Noted Date Seasonal allergic rhinitis due to pollen 07/27/2018 Pure hypercholesterolemia 02/16/2018 Uncontrolled type 2 diabetes mellitus without complic ation, without 02/16/2018 long-term current use of insulin Vitamin D deficiency 02/16/2018 Anxiety, generalized 11/16/2017 Depression, reactive 11/16/2017 Complicated migraine 06/11/2012 Essential hypertension Resolved Problems Problem Noted Date Resolved Date Chronic left-sided headaches 05/20/2018 9 Encounters Care Team Description Date Type Specialty Brigette Kaufman MD Vitamin D deficiency 10/26/2019 Orders Only Family Practice 10/10/2019 Ancillary Radiology Procedure Adelia Solis MD Uncontrolled type 2 diabetes mellitus wi thout complication, without long-term current use of insulin (Primary Dx); Complicated migraine; Depression, reactive; Anxiety, generalized; Pure hypercholesterolemia 09/09/2019 Office Visit Neurology Brigette Kaufman MD Type II diabetes mellitus, well controll ed (Primary Dx); Essential hypertension; Need for influenza vaccination; Screen for colon cancer; Encounter for vaccination; Chronic left-sided headaches; Pure hypercholesterolemia; Vitamin D deficiency 08/09/2019 Office Visit Family Practice Brigette Kaufman MD Vitamin D deficiency 06/29/2019 Orders Only [facility] Brigette Kaufman MD Norman, Dora, RN Encounter for education (Primary Dx) 06/28/2019 Patient Patient Education Education Brigette Kaufman MD Anxiety, generalized 05/19/2019 Refill Family Practice Ade Shaw LD 04/15/2019 Nutrition Nutrition Juana Franco RN 04/15/2019 Clinical Case Social Work Mgt Brigette Kaufman MD Norman, Dora, RN Encounter for education (Primary Dx) 04/12/2019 Patient Patient Education Education Brigette Kuafman MD Uncontrolled type 2 diabetes mellitus wi thout complication, without long-term current use of insulin (Primary Dx); Screen for colon cancer; Essential hypertension; Chronic left-sided headaches 04/12/2019 Office Visit Family Practice Brigette Kaufman MD Norman, Dora, MUSTAPHA Encounter for education (Primary Dx) 04/06/2019 Patient Patient Education Education Brooke Mathias, [facility] Non-insulin dependent type 2 diabetes me llitus (Primary Dx) 03/31/2019 Office Visit Clinical Pharmacy Brigette Kaufman MD Martinez, Betty A, UX ENGINEER 03/03/2019 Nurse Only Angely Dhillon, INFORMATICS PHYSICIAN 03/03/2019 Clinical Case Social Work Mgt Brigette Kaufman MD Screening for breast cancer 02/28/2019 Ancillary Radiology Procedure Brigette Kaufman MD Screen for colon cancer 02/24/2019 Orders Only [facility] Brigette Kaufman MD Norman, Dora, photographic reproduction technician education, encounter for (Prima ry Dx) 02/22/2019 Patient Patient Education Education Ade Shaw, MIKI 02/22/2019 Nutrition Nutrition Maria E Blount RN 02/22/2019 Patient Patient Education Education Jorge Luis Benitez MERCEDES (generalized anxiety disorder) (Prim radha Dx) 02/21/2019 Office Visit Psychology Brigette Kaufman MD 02/18/2019 Ancillary Radiology Procedure Brigette Kaufman MD Norman, Dora, photographic reproduction technician education, encounter for (Prima ry Dx) 02/17/2019 Patient Patient Education Education Brigette Kaufman MD Uncontrolled type 2 diabetes mellitus wi thout complication, without long-term current use of insulin (Primary Dx); Screening for breast cancer; Screen for colon cancer; Essential hypertension; Chronic left-sided headaches; Dietary counseling for Above / Below Normal BMI; Exercise counseling for Above Normal BMI Only!; Vitamin D deficiency; Yeast vaginitis; Anxiety, generalized; Type II diabetes mellitus, well controlled 02/17/2019 Office Visit Family Practice Brigette Kaufman MD Anxiety, generalized 02/17/2019 Orders Only [facility] Ade Shaw, MIKI 02/17/2019 Nutrition Nutrition after 01/22/2019 Immunizations Name Administration Dates Next Due Influenza Vaccine, 10/15/2017 Seasonal, Injectable Influenza, 07/27/2018 Vaccine<FLUCELVAX>(Multi- Dose) Tdap (Tetanus Toxoid, 03/08/2014 Reduced Diphtheria Toxoid And Acellular Pertussis, Absorbed) Family History Relation Name Status Comments Brother Alive 2 brothers Father Mother Sister Alive 2 sisters Social History Date Tobacco Use Types Packs/Day Years Used Never Smoker Smokeless Tobacco: Never Used Tobacco Cessation: Counseling Given: No Drinks/Week oz/Week Comments Alcohol Use No Food Insecurity Answer Date Recorded Within the past 12 months, you worried that your Never kris e 07/27/2018 food would run out before you got money to buy more. Within the past 12 months, the food you bought Never true 07/27/2018 just didn't last and you didn't have mo brisa to get more. Sex Assigned at Date Recorded Not on file Industry Job Start Date Occupation Not on file Not on file Not on file Travel End Travel History Travel Start No recent travel history available. Last Filed Vital Signs Reading Time Taken Comments Vital Sign 150/63 09/09/2019 8:05 AM BANDOLEER STRAIGHTENER STAMPER Blood Pressure 69 09/09/2019 8:05 AM BANDOLEER STRAIGHTENER STAMPER Pulse 36.7 C (98 F) 09/09/2019 8:05 AM BANDOLEER STRAIGHTENER STAMPER Temperature 18 09/09/2019 8:05 AM BANDOLEER STRAIGHTENER STAMPER Respiratory Rate - - Oxygen Saturation - - Inhaled Oxygen Concentration 84.1 kg (185 lb 8 oz) 09/09/2019 8:05 AM BANDOLEER STRAIGHTENER STAMPER Weight 154.9 cm (5' 1") 09/09/2019 8:05 AM BANDOLEER STRAIGHTENER STAMPER Height 35.05 09/09/2019 8:05 AM BANDOLEER STRAIGHTENER STAMPER Body Mass Index Plan of Treatment Health Maintenance Due Date Last Done Comments Colorectal Cancer Scrn 2008 Annual (FIT/FOBT) Age 50 to 75 DM Retinal Exam (Yearly) 10/18/2019 10/18/2018, 0 02/16/2018 Cervical Cancer Scrn (3 11/18/2019 11/17/2016 Yrs) DM Foot Exam (Yearly) 02/18/2020 02/17/2019, 0601/2018 Breast Cancer Scrn 02/29/2020 02/28/2019, 018, 11/17/2016, (Yearly) Additional history exists IMM Influenza Seasonal 06/14/2020 07/27/2018, 09/2017 to November (>/= 19 yrs) DM HGBA1C (Yearly) 10/25/2020 10/25/2019, 019, 02/17/2019, Additional history exists Goals Goal Patient Associated Recent Progress Patient-Stat Aut hor Goal Type Problems ed? Use plate model Diet No Mague Calles RN Exercise 5x per week (15 min Exercise No Amira chappell, per time) MIKI Booker Eat Healthy Lifestyle Not on track No Dasha, (04/15/2019 9:20 AM FRANKY Boyd) Videotape Recording Engineer Eat healthy breakfast Lifestyle No Ade Shaw LD Note: Change sweet bread in the morning for yogurt with nuts or 1 slice bread with avocado and tomato, for mid-morning eat egg with veggies and tortilla instead of something sweet Eat Healthy Lifestyle No Francine Camargo LVN Home Glucose Monitoring Self Not on track No Dharmesh merino, management (04/12/2019 8:51 AM MUSTAPHA Bowser CDT) Take medications as prescribed Self Not on track No Maria E Blount, management (04/12/2019 8:51 AM RN MARIA INEST) HBA1C < 7 Treatment No Brigette Kaufman MD Procedures Comments Procedure Name Priority Date/Time Associated Diag nosis VIT D, 25-HYDROXY Routine 10/25/2019 Vitamin D de ficiency 7:42 AM BANDOLEER STRAIGHTENER STAMPER LIVER PROFILE Routine 10/25/2019 Pure hyperchole sterolemia 7:42 AM BANDOLEER STRAIGHTENER STAMPER LIPID PROFILE Routine 10/25/2019 Pure hyperchole sterolemia 7:42 AM BANDOLEER STRAIGHTENER STAMPER HEMOGLOBIN A1C Routine 10/25/2019 Type II diabete s 7:42 AM BANDOLEER STRAIGHTENER STAMPER mellitus, well controlled BASIC METABOLIC PANEL Routine 10/25/2019 Type II diabetes 7:42 AM BANDOLEER STRAIGHTENER STAMPER mellitus, well controlled MRI BRAIN W/O CONTRAST Routine 10/10/2019 Complic ated migraine 3:12 PM BANDOLEER STRAIGHTENER STAMPER GLUCOSE POC Routine 09/09/2019 8:47 AM BANDOLEER STRAIGHTENER STAMPER URINALYSIS Routine 06/28/2019 Uncontrolled ty pe 2 7:21 AM CDT diabetes mellitus without complication, without long-term current use of insulin VITAMIN B12 Routine 06/28/2019 Uncontrolled ty pe 2 7:21 AM CDT diabetes mellitus without complication, without long-term current use of insulin VIT D, 25-HYDROXY Routine 06/28/2019 Uncontrolled type 2 7:21 AM CDT diabetes mellitus without complication, without long-term current use of insulin URINALYSIS Routine 06/28/2019 Uncontrolled ty pe 2 7:21 AM CDT diabetes mellitus without complication, without long-term current use of insulin MICROALBUMIN / CREATININE Routine 06/28/2019 Unco ntrolled type 2 URINE RATIO 7:21 AM CDT diabetes mellitus w ithout complication, without long-term current use of insulin LIVER PROFILE Routine 06/28/2019 Uncontrolled ty pe 2 7:21 AM CDT diabetes mellitus without complication, without long-term current use of insulin LIPID PROFILE Routine 06/28/2019 Uncontrolled ty pe 2 7:21 AM CDT diabetes mellitus without complication, without long-term current use of insulin HIV-1/HIV-2 ROUTINE Routine 06/28/2019 Uncontroll ed type 2 SCREENING 7:21 AM CDT diabetes mellitus w ithout complication, without long-term current use of insulin HEMOGLOBIN A1C Routine 06/28/2019 Uncontrolled ty pe 2 7:21 AM CDT diabetes mellitus without complication, without long-term current use of insulin BASIC METABOLIC PANEL Routine 06/28/2019 Uncontro lled type 2 7:21 AM CDT diabetes mellitus without complication, without long-term current use of insulin MAMMOGRAM BILAT SCREEN Routine 02/28/2019 Screeni ng for breast DIGITAL 10:43 AM CDT cancer XRAY SPINE CER 2-3 AP- Routine 02/18/2019 Chronic left-sided LAT- ODONTOID 9:05 AM CDT headaches BMP POC Routine 02/17/2019 8:31 AM CDT POC BMP STAT 02/17/2019 Uncontrolled ty pe 2 8:12 AM CDT diabetes mellitus without complication, without long-term current use of insulin HEMOGLOBIN A1C STAT 02/17/2019 Uncontrolled ty pe 2 8:12 AM CDT diabetes mellitus without complication, without long-term current use of insulin LIVER PROFILE Routine 02/17/2019 Uncontrolled ty pe 2 8:11 AM CDT diabetes mellitus without complication, without long-term current use of insulin LIPID PROFILE Routine 02/17/2019 Uncontrolled ty pe 2 8:11 AM CDT diabetes mellitus without complication, without long-term current use of insulin THYROID STIMULATING Routine 02/17/2019 Uncontroll ed type 2 HORMONE (TSH) 8:11 AM CDT diabetes mellitus w ithout complication, without long-term current use of insulin DIABETIC FOOT EXAM Routine 02/17/2019 Uncontrolle d type 2 7:17 AM CDT diabetes mellitus without complication, without long-term current use of insulin after 01/22/2019 Results * Vitamin D, 25-Hydroxycalciferol (10/25/2019 7:42 AM BANDOLEER STRAIGHTENER STAMPER) Only the most recent of 2 results within the time period is included. Vit D, 13.3 (L) 30.0 - 100.0 ng/mL [facility] 25-Hydroxy [facility] Vitamin D Deficient (A) Sufficient [facility] Interpretation Comment: LAB[facility] Sufficient: >30.0 Insufficient: 20.0 - 29.9 Deficient: <20.0 Specimen Blood Performing Organization Address [facility] Ph one Number [facility] [address] [place] [address] * Hemoglobin A1C (10/25/2019 7:42 AM BANDOLEER STRAIGHTENER STAMPER) Only the most recent of 3 results within the time period is included. Hemoglobin A1c 7.6 (H) 4.3 - 6.1 % [facility] Estimated 171 (H) 70 - 110 mg/dL [facility] Average Glucose LABORATORY Specimen Blood Performing Organization Address [facility] one Number [facility] [address] [place] [address] [phone] * Liver Profile (10/25/2019 7:42 AM BANDOLEER STRAIGHTENER STAMPER) Only the most recent of 3 results within the time period is included. Total Protein 7.5 6.0 - 8.3 g/dL [facility] Bilirubin, 0.9 0.2 - 1.2 mg/dL [facility] Total [facility] Alkaline 102 34 - 104 U/L [facility] Phosphatase [facility] AST 31 13 - 39 U/L [facility] Direct 0.2 0.0 - 0.2 mg/dL [facility] Bilirubin [facility] ALT 52 7 - 52 U/L [facility] Albumin 4.3 3.7 - 5.3 g/dL [facility] Specimen Blood Performing Organization Address [facility] one Number [facility] [address] [place] [address] [phone] * Lipid Profile (10/25/2019 7:42 AM BANDOLEER STRAIGHTENER STAMPER) Only the most recent of 3 results within the time period is included. Cholesterol 152.0 <=200.0 mg/dL [facility] Triglyceride 174 (H) <150 mg/dL [facility] HDL 35.0 See Reference Range [facility] Narrative. mg/dL LAB[facility]ATORY LDL 82 <100 mg/dL [facility] Comment: [facility] Optimal: < 100.0 mg/dL Near Optimal: 120-129 mg/dL Borderline: 130-159 mg/dL High: 160-189 mg/dL Very High: >=190 mg/dL Patient Yes [facility] Fasting? LABORATORY Specimen Blood Performing Organization Address [facility] one Number [facility] [address] [place] [address] * Basic Metabolic Panel (10/25/2019 7:42 AM BANDOLEER STRAIGHTENER STAMPER) Only the most recent of 2 results within the time period is included. Sodium 139 136 - 145 mmol/L [facility] Potassium 4.6 3.5 - 5.1 mmol/L [facility] Chloride 102 98 - 107 mmol/L [facility] CO2 29 21 - 31 mmol/L [facility] Urea Nitrogen 12.0 7.0 - 25.0 mg/dL [facility] Creatinine 0.6 0.6 - 1.2 mg/dL [facility] Glucose 128 (H) 70 - 110 mg/dL [facility] Calcium 9.8 8.6 - 10.3 mg/dL [facility] GFR, Estimated >90 >=90 mL/min/1.73 m2 [facility] Anion Gap 8 5 - 16 mmol/L [facility] Specimen Blood Performing Organization Address City/State/Zipcode Ph one Number [facility] [address] [place] [address] * MRI BRAIN W/O CONTRAST (10/10/2019 3:12 PM BANDOLEER STRAIGHTENER STAMPER) Specimen Impressions Performed At IMPRESSION: SMS 1. Minimal age-related white matter c hronic microvascular ischemic changes. Otherwise no intracranial abno rmalities. 2. Possible minimal partial opacifica tion of the sphenoid sinuses as detailed above. Signed By: Hannah Shaffer MD, 10/10/2019 4: 58 PM Narrative Performed At EXAMINATION: MRI of the brain without contrast SMS HISTORY: Chronic headaches COMPARISON: Head CT 10/14/2017 TECHNIQUE: Sagittal T2; axial DWI, FLAI R, T1-IR, SWI; coronal FLAIR. DISCUSSION: MRI OF THE BRAIN: Brain signal intensity: A few scattered white matter T2 and FLA IR hyperintense foci (less than 5) mostly in the frontal lobes, most li kenyatta age-related minimal chronic microvascular ischemic changes. Otherwi se there are no areas of abnormal signal intensity.. No mass, hemorrhage, acute or chronic v ascular insults. Vessels: Expected flow voids pres ent in the major arteries and dural sinuses. Brain volume: Within normal limit s for age. Ventricles: Normal size, shape, a nd position. Craniocervical junction: Normal. Paranasal and mastoid sinuses: Mi nimal mucosal thickening of the sphenoid sinuses with tiny air-fluid le qi, only partially visualized, correlation with physical examination f or possible sinusitis is advised. Sella turcica : No discrete mass. . Scalp/skull : No abnormalities. . Procedure Note Interface, Rad/Mammog In - 10/10/2019 5:04 PM BANDOLEER STRAIGHTENER STAMPER EXAMINATION: MRI of the brain without contrast HISTORY: Chronic headaches COMPARISON: Head CT 10/14/2017 TECHNIQUE: Sagittal T2; axial DWI, FLAIR, T1-IR, SWI; coronal FLAIR. DISCUSSION: MRI OF THE BRAIN: Brain signal intensity: A few scattered white matter T2 and FLAIR hyperintense foci (less than 5) mostly in the frontal lobes, most lik radha age-related minimal chronic microvascular ischemic changes. Otherwise there are no areas of abnormal signal intensity.. No mass, hemorrhage, acute or chronic vascular insults. Vessels: Expected flow voids present in the major arteries and dural sinuses. Brain volume: Within normal limits for age. Ventricles: Normal size, shape, and position. Craniocervical junction: Normal. Paranasal and mastoid sinuses: Minimal mucosal thickening of the sphenoid sinuses with tiny air-fluid level, only partially visualized, correlation with physical examination for possible sinusitis is advised. Sella turcica : No discrete mass.. Scalp/skull : No abnormalities.. IMPRESSION IMPRESSION: 1. Minimal age-related white matter chr onic microvascular ischemic changes. Otherwise no intracranial abnormalities. 2. Possible minimal partial opacificati on of the sphenoid sinuses as detailed above. Signed By: Hannah Shaffer MD, 10/10/2019 4:58 PM Performing Organization Address [facility] Ph one Number SMS * POCT GLUCOSE POC docked device (09/09/2019 8:47 AM BANDOLEER STRAIGHTENER STAMPER) Glucose POC 226 (H) 74 - 106 mg/dL [facility] Specimen Blood Performing Organization Address [facility] one Number [facility] [place] [address] [phone] [facility] [address] [place] [address] [phone] * Urinalysis (06/28/2019 7:21 AM CDT) Color Yellow Colorless, Straw, [facility] Yellow [facility] Clarity Clear Clear [facility] Spec Centre, 1.020 1.001 - 1.035 [facility] Ur [facility] pH, Ur 5.0 5.0 - 8.0 [facility] Protein, Ur Negative Negative mg/dL [facility] Glucose, Ur Negative Negative mg/dL [facility] Ketone, Ur Negative Negative mg/dL [facility] Bilirubin, Ur Negative Negative mg/dL [facility] Nitrite, Ur Negative Negative [facility] Leukocyte 1+ (A) Negative mg/dL [facility] Blood, Ur Negative Negative mg/dL [facility] RBC 1 0 - 4 /HPF [facility] WBC 4 0 - 5 /HPF [facility] Epithelial Cell <1 <=1 /HPF [facility] Urobilinogen, <1.0 <1.0 EU/dL [facility] Ur [facility] Specimen Urine Performing Organization Address [facility] one Number [facility] [address] [place], [place] [phone] * HIV-1/HIV-2 Routine Screening (06/28/2019 7:21 AM CDT) HIV-1/HIV-2 Negative Negative [facility] Specimen Blood Performing Organization Address [facility] one Number [facility] [address] [place] [address] [phone] * Microalb/Crea Ratio,Ur (06/28/2019 7:21 AM CDT) Microalbumin, 0.8 <30.0 mg/dL [facility] Creatinine, 93 20 - 320 mg/dL [facility] Urine 8.6 0.0 - 30.0 mg/g [facility] Micro[facility]in [facility] Specimen Urine - Voided, urine Performing Organization Address [facility] one Number [facility] [address] [place] [address] * Vitamin B12 (06/28/2019 7:21 AM CDT) Vitamin B12 466 See comment pg/mL [facility] Comment: LABORATORY Normal: 180-914 pg/mL Intermittent: 145-180 pg/mL Deficient: <=145.0 pg/mL Specimen Blood Performing Organization Address [facility] one Number [facility] [address] [place] [address] * MAMMOGRAM BILAT SCREEN DIGITAL (02/28/2019 10:43 AM CDT) Specimen Impressions Performed At IMPRESSION: BENIGN SMS There is no mammographic evidence of ma lignancy. A 1 year screening mammogram is recommended. This document has been electronically s igned. Isa Briones M.D. to/penrad:02/28/2019 11:01:55 Supervisor Drawing: Si[employer]han [employer], [facility] letter sent: Benign Exam Mammogram BI-RADS: 2 Benign G0202 z1 2.31 Narrative Performed At #[id number] - MAMMOGRAM BILAT SCREEN DIGITAL SMS BILATERAL DIGITAL SCREENING MAMMOGRAM W ITH CAD: 02/28/2019 CLINICAL: Screening for malignancy. Comparison is made to exam dated: 02/12 [facility]. There are scattered fibroglandular [place] ents in both breasts that could obscure a lesion on mammography. Current study was also evaluated with a Computer Aided Detection (CAD) system. There are benign calcifications in the right breast. No significant masses, calcifications, or other findings are seen in either breast. There has been no significant interval change. Procedure Note Interface, Rad/Mammog In - 02/28/2019 12:32 PM CDT #[id number] - MAMMOGRAM BILAT SCREEN DIGITAL BILATERAL DIGITAL SCREENING MAMMOGRAM WITH CAD: 02/28/2019 CLINICAL: Screening for malignancy. Comparison is made to exam dated: 02/24/2018 [facility]. There are scattered fibroglandular elements in both breasts that could obscure a lesion on mammography. Current study was also evaluated with a Computer Aided Detection (CAD) system. There are benign calcifications in the right breast. No significant masses, calcifications, or other findings are seen in either breast. There has been no significant interval change. IMPRESSION IMPRESSION: BENIGN There is no mammographic evidence of malignancy. A 1 year screening mammogram is recommended. This document has been electronically signed. Isa Briones M.D. to/penrad:02/28/2019 11:01:55 Supervisor Drawing: Siobhan [employer], [facility] letter sent: Benign Exam Mammogram BI-RADS: 2 Benign G0202 z12.31 Performing Organization Address City/State/Zipcode Ph one Number SMS * XRAY SPINE CER 2-3 AP- LAT- ODONTOID (02/18/2019 9:05 AM CDT) Specimen Impressions Performed At IMPRESSION: SMS 1. No acute radiographic abnormality. 2. Multilevel cervical spondylosis mo st notable at C5-C6. Dictated By: Kishor Morejon MD, 019 9:36 AM I have reviewed the study and agree wit h the findings in this report. Signed By: Jonathan Hassan DO, 02/18/2019 11: 02 AM Narrative Performed At EXAMINATION: XRAY SPINE CER 2-3 AP- LAT- ODONTOID SMS INDICATION: left sided headaches and ar m pain COMPARISON: None DISCUSSION: On the lateral view, the cervical spine is visualized from the level of the skull base to C6-7. Normal alignment. No acute displaced fracture, within the limitations of this exam. Mild multilevel disc degeneration most notable at C5-C6. Procedure Note Interface, Rad/Mammog In - 02/18/2019 11:07 AM CDT EXAMINATION: XRAY SPINE CER 2-3 AP- LAT- ODONTOID INDICATION: left sided headaches and arm pain COMPARISON: None DISCUSSION: On the lateral view, the cervical spine is visualized from the level of the skull base to C6-7. Normal alignment. No acute displaced fracture, within the limitations of this exam. Mild multilevel disc degeneration most notable at C5-C6. IMPRESSION IMPRESSION: 1. No acute radiographic abnormality. 2. Multilevel cervical spondylosis most notable at C5-C6. Dictated By: Kishor Morejon MD, 02/18/2019 9:36 AM I have reviewed the study and agree with the findings in this report. Signed By: Jonathan Hassan DO, 02/18/2019 11:02 AM Performing Organization Address [facility] one Number SMS * POCT BMP POC docked device (02/17/2019 8:31 AM CDT) Sodium POC 134 (L) 136 - 145 mmol/L [facility] Potassium POC 4.1 3.5 - 5.1 mmol/L [facility] Chloride POC 97 (L) 98 - 107 mmol/L [facility] TCO2 POC 26Comment: Physician Notified 21 - 32 mmol/L [facility] Urea Nitrogen 16 7 - 18 mg/dL [facility] Creatinine POC 0.5 (L) 0.6 - 1.3 mg/dL [facility] Glucose POC 409 (HH) 74 - 106 mg/dL [facility] Ionized Calcium 1.13 (L) 1.15 - 1.29 mmol/L [facility] GFR, Estimated >60 mL/min/1.73 m2 [facility] Specimen Blood, venous Performing Organization Address [facility] Ph one Number [facility] [address] [place] [address] * POC BMP (02/17/2019 8:12 AM CDT) Specimen Narrative Performed At NA 134 [facility] K 4.1 CL 97 iCA 1.13 TCO2 26 GLU 409 BUN 16 CREA 0.5 HANDED CRITICAL REPORT TO DR. KAUFMAN AT 08:51. RESULTS NOT INTERFACED. Performing Organization Address City/State/Zipcode Ph one Number [facility] * TSH (02/17/2019 8:11 AM CDT) TSH 1.64 0.57 - 3.74 uIU/mL [facility] Comment: [facility]ORATORY If , please see the following reference ranges (not verified by lab): 1st Trimester: 0.05 -3.70 uIU/mL 2nd Trimester: 0.31 -4.35 uIU/mL 3rd Trimester: 0.41 - 5.18 uIU/mL Specimen Blood Performing Organization Address City/[facility]/[place] Ph one Number [facility] [address] [place] [address] [phone] * DIABETIC FOOT EXAM (02/17/2019 7:17 AM CDT) Narrative Performed At Brigette Kaufman MD 02/18/2019 7 :00 AM Diabetic Foot Exam was performed at 02/17 8:00 AM. Right foot sensation is normal, right foot pulses are normal, right foot appearance is normal. Left foot sensation is nor mal, left foot pulses are normal, left foot appearance is normal. after 01/22/2019 Insurance Type Payer Benefit Subscriber ID Effective Phone Address Plan / Dates Group [facility] xxxxxxxxxxxx 2018-P [phone] [facility] resent [id number] [facility] E [phone] [employer] PLAN FINANCIAL xxxxx 2019 [facility] [address] [place] [address] FORMERLY [facility], [facility] xxxxxxxxxxxx 2019-1 [id number] [facility] [address] Advance Directives Date Inactivated Comments Code Status Date Activated 10/16/2017 3:06 PM Full Code 10/14/2017 6:33 PM
[2020-01-23] MEDS ORDERED: ASPIRIN 81 MG CHEW TAB PO ONE (22:00)
[2020-01-23 22:15] LABS: BASOPHILS % 0.4 % (0.0-1.0); EOSINOPHILS # (AUTO) 0.2 (0.0-0.4); EOSINOPHILS % 2.2 % (0.0-6.0); HEMATOCRIT 36.2 % (34.2-44.1); HEMOGLOBIN 11.9 g/dL (12.0-16.0); LYMPHOCYTES # (AUTO) 2.4 (1.0-3.2); LYMPHOCYTES % 22.4 % (18.0-39.1); MEAN CORPUSCULAR HEMOGLOBIN 28.6 pg (28-32); MEAN CORPUSCULAR HGB CONC 32.9 g/dL (31-35); MONOCYTES # (AUTO) 0.7 (0.2-0.8); MONOCYTES % 6.3 % (4.4-11.3); NEUTROPHILS # (AUTO) 7.3 (2.1-6.9); NEUTROPHILS % 68.4 % (38.7-80.0); PLATELET COUNT 242 x10e3/uL (140-360); RED BLOOD COUNT 4.16 x10e6/uL (3.6-5.1); RED CELL DISTRIBUTION WIDTH 13.7 % (11.7-14.4)
[2020-01-23 22:34] LABS: ALANINE AMINOTRANSFERASE 27 IU/L (0-55); ALKALINE PHOSPHATASE 95 IU/L (40-150); ANION GAP 16.6 mmol/L (8-16); BLOOD UREA NITROGEN 21 mg/dL (7-26); BUN/CREATININE RATIO 24 (6-25); CARBON DIOXIDE 25 mmol/L (22-29); CHLORIDE 103 mmol/L (98-107); CREATINE KINASE 33 IU/L (29-168); CREATININE, SERUM 0.86 mg/dL (0.57-1.11); EST GLOMERULAR FILTRATION RATE > 60 ML/MIN (60-); GLUCOSE 110 mg/dL (74-118); POTASSIUM 3.6 mmol/L (3.5-5.1); SODIUM 141 mmol/L (136-145)
[2020-01-23 22:39] LABS: CALCIUM 10.3 mg/dL (8.4-10.2)
--- NOTE | 2020-01-23 22:43 | Diagnostic Imaging Report ---
CT BRAIN WO HISTORY: Numbness to head, left COMPARISON: Head CT 01/12/2020 TECHNIQUE: Noncontrast axial scans were obtained from skull base to the vertex. Coronal and sagittal reconstructions obtained from the axial data. One or more of the following dose reduction techniques were used: Automated exposure control, adjustment of the mA and/or kV according to patient size, and/or utilization of iterative reconstruction technique. DISCUSSION: Scalp/Skull: Unremarkable. Brain sulci: Appropriate for patient's age. Ventricles: Normal in size and configuration. No hydrocephalus. Extra-axial spaces: No masses or fluid collections. Minimal carotid siphon calcification. Parenchyma: No abnormal densities. No mass, hemorrhage, or large vascular territory acute infarct. Dural sinuses: No abnormal densities. Sellar/Suprasellar region: Intact. Skull base: Intact. Incidental findings: Minimal scattered paranasal sinus mucosal thickening. IMPRESSION: No acute intracranial abnormalities. Signed by: Dr. Abel Roy M.D. on 01/23/2020 10:40 PM
--- NOTE | 2020-01-23 23:19 | Diagnostic Imaging Report ---
EXAMINATION: CHEST 2 VIEWS INDICATION: Chest pain COMPARISON: 01/13/2020 FINDINGS: PA and lateral views TUBES and LINES: None. LUNGS: Lungs are well inflated. Lungs are clear. There is no evidence of pneumonia or pulmonary edema. PLEURA: No pleural effusion or pneumothorax. HEART AND MEDIASTINUM: The cardiomediastinal silhouette is unremarkable. BONES AND SOFT TISSUES: No acute osseous lesion. Soft tissues are unremarkable. UPPER ABDOMEN: No free air under the diaphragm. IMPRESSION: No acute thoracic radiographic abnormality. Signed by: Rafi Manuel MD on 01/23/2020 11:15 PM
--- NOTE | 2020-01-23 23:28 | Emergency Department Note ---
History of Present Illnes History of Present Illness Chief Complaint: General Medicine Complaints Stated Complaint: NUMBNESS TO ONE SIDE History of Present Illness This is a 59 year old female presents to the ED for n/t to the left side since 1600. Intermittant Historian: Patient History limited by: language barrier Professor Of Languages Required: Yes Onset (how long ago): hour(s) (6) Radiation: non-radiation Severity: mild Onset quality: sudden Timing of current episode: intermittent Progression: waxing and waning Chronicity: recurrent Relieving factors: none Exacerbating factors: none Treatments prior to arrival: none Past Medical/Family History Physician Review I have reviewed the patient's past medical and family history. Any updates have been documented here. Past Medical History Recent Fever: No Clinical Suspicion of Infectio: No Past Medical History: Hypertension, Diabetes, Anxiety Past Surgical History: Hysterectomy Social History Smoking Cessation: Never Smoker Alcohol Use: None Any Illegal Drug Use: No Other Last Tetanus: UNKNOWN Review of Systems Review of Systems Constitutional: no symptoms EENTM: no symptoms Cardiovascular: no symptoms Gastointestinal/Abdominal: no symptoms Genitourinary: no symptoms Musculoskeletal: no symptoms Integumentary: no symptoms Neurological: numbness Psychological: anxiety Endocrine: no symptoms Hematological/Lymphatic: no symptoms Review of other systems All other systems reviewed and negative. Physical Exam Related Data Allergies: Coded Allergies: No Known Allergies (Unverified , 01/12/20) Physical Exam CONSTITUTIONAL Constitutional: well-developed, well-nourished HENT HENT: normocephalic, atraumatic, oropharynx clear/moist, nose normal HENT - Ear: left ext ear normal, right ext ear normal EYES Eyes: PERRL, conjunctivae normal NECK Neck: ROM normal PULMONARY Pulmonary: effort normal, breath sounds normal CARDIOVASCULAR Cardiovascular: regular rhythm, heart sounds normal, capillary refill normal, normal rate GASTROINTESTINAL Abdominal: soft, nontender, bowel sounds normal GENITOURINARY Genitourinary: exam deferred SKIN Skin: warm, dry MUSCULOSKELETAL Musculoskeletal: ROM normal NEUROLOGICAL Neurological: alert, oriented x 3, no gross motor or sensory deficits PSYCHOLOGICAL Psychiatric/behavioral: mood/affect normal, judgement normal Results Laboratory Laboratory Laboratory Tests Test 01/23/20 21:45 White Blood Count 10.60 x10e3/uL (4.8-10.8) Red Blood Count 4.16 x10e6/uL (3.6-5.1) Hemoglobin 11.9 g/dL (12.0-16.0) Hematocrit 36.2 % (34.2-44.1) Mean Corpuscular Volume 87.0 fL (81-99) Mean Corpuscular Hemoglobin 28.6 pg (28-32) Mean Corpuscular Hemoglobin Concent 32.9 g/dL (31-35) Red Cell Distribution Width 13.7 % (11.7-14.4) Platelet Count 242 x10e3/uL (140-360) Neutrophils (%) (Auto) 68.4 % (38.7-80.0) Lymphocytes (%) (Auto) 22.4 % (18.0-39.1) Monocytes (%) (Auto) 6.3 % (4.4-11.3) Eosinophils (%) (Auto) 2.2 % (0.0-6.0) Basophils (%) (Auto) 0.4 % (0.0-1.0) Neutrophils # (Auto) 7.3 (2.1-6.9) Lymphocytes # (Auto) 2.4 (1.0-3.2) Monocytes # (Auto) 0.7 (0.2-0.8) Eosinophils # (Auto) 0.2 (0.0-0.4) Basophils # (Auto) 0.0 (0.0-0.1) Absolute Immature Granulocyte (auto 0.03 x10e3/uL (0-0.1) Sodium Level 141 mmol/L (136-145) Potassium Level 3.6 mmol/L (3.5-5.1) Chloride Level 103 mmol/L (98-107) Carbon Dioxide Level 25 mmol/L (22-29) Anion Gap 16.6 mmol/L (8-16) Blood Urea Nitrogen 21 mg/dL (7-26) Creatinine 0.86 mg/dL (0.57-1.11) Estimat Glomerular Filtration Rate > 60 ML/MIN (60-) BUN/Creatinine Ratio 24 (6-25) Glucose Level 110 mg/dL (74-118) Calcium Level 10.3 mg/dL (8.4-10.2) Total Bilirubin 0.4 mg/dL (0.2-1.2) Aspartate Amino Transf (AST/SGOT) 19 IU/L (5-34) Alanine Aminotransferase (ALT/SGPT) 27 IU/L (0-55) Alkaline Phosphatase 95 IU/L (40-150) Creatine Kinase 33 IU/L (29-168) Creatine Kinase MB 0.70 ng/mL (0-5.0) Troponin I 0.011 ng/mL (0-0.300) Total Protein 8.1 g/dL (6.5-8.1) Albumin 4.0 g/dL (3.5-5.0) Globulin 4.1 g/dL (2.3-3.5) Albumin/Globulin Ratio 1.0 (0.8-2.0) Lab results reviewed: Yes Imaging Y: Yes Impressions [place] [address] Patient Name: HALLE MEDINA MR #: [id number] : 1960 Age/Sex: 59/F Req #: [id number] Adm Physician: Ordered by: MATT ARAIZA DO Report #: [id number] Location: ER Room/Bed: Procedure: [id number] CT/CT BRAIN WO Exam Date: 01/23/20 Exam Time: 2199 REPORT STATUS: Signed CT BRAIN WO HISTORY: Numbness to head, left COMPARISON: Head CT 01/12/2020 TECHNIQUE: Noncontrast axial scans were obtained from skull base to the vertex. Coronal and sagittal reconstructions obtained from the axial data. One or more of the following dose reduction techniques were used: Automated exposure control, adjustment of the mA and/or kV according to patient size, and/or utilization of iterative reconstruction technique. DISCUSSION: Scalp/Skull: Unremarkable. Brain sulci: Appropriate for patient's age. Ventricles: Normal in size and configuration. No hydrocephalus. Extra-axial spaces: No masses or fluid collections. Minimal carotid siphon calcification. Parenchyma: No abnormal densities. No mass, hemorrhage, or large vascular territory acute infarct. Dural sinuses: No abnormal densities. Sellar/Suprasellar region: Intact. Skull base: Intact. Incidental findings: Minimal scattered paranasal sinus mucosal thickening. IMPRESSION: No acute intracranial abnormalities. Signed by: Dr. Abel Roy M.D. on 01/23/2020 10:40 PM Dictated By: ABEL ROY MD 39 Transcribed By: JASON on 01/23/202239 COPY TO: MATT ARAIZA DO~ [place] [address] Patient Name: HALLE MEDINA MR #: [id number] : 1960 Age/Sex: 59/F Req #: [id number] Adm Physician: Ordered by: MATT ARAIZA DO Report #: [id number] Location: ER Room/Bed: Procedure: [id number] DX/CHEST 2 VIEWS Exam Date: 01/23/20 Exam Time: 2199 REPORT STATUS: Signed EXAMINATION: CHEST 2 VIEWS INDICATION: Chest pain COMPARISON: 01/13/2020 FINDINGS: PA and lateral views TUBES and LINES: None. LUNGS: Lungs are well inflated. Lungs are clear. There is no evidence of pneumonia or pulmonary edema. PLEURA: No pleural effusion or pneumothorax. HEART AND MEDIASTINUM: The cardiomediastinal silhouette is unremarkable. BONES AND SOFT TISSUES: No acute osseous lesion. Soft tissues are unremarkable. UPPER ABDOMEN: No free air under the diaphragm. IMPRESSION: No acute thoracic radiographic abnormality. Signed by: Kya Pearson MD on 01/23/2020 11:15 PM Dictated By: KYA PEARSON MD 14 Transcribed By: JASON on 01/23/202314 COPY TO: MATT ARAIZA DO~ Clinical Decision Tools NIH Stroke Scale NIH Stroke Score: NIH Stroke Score Response (Comments) Value Level of Consciousness Alert, Keenly Responsive 0 Level of Consciousness Questions Answers Both Correctly 0 Level of Consciousness Commands Performs Both Tasks 0 Lateral Gaze Paresis Normal 0 Visual Field Loss No Visual Loss 0 Facial Palsy Normal Symmetrical Move 0 Motor Left Arm No Drift, Arm Stays 45/90 0 Motor Right Arm No Drift, Arm Stays 45/90 0 Motor Left Leg No Drift, Arm Stays 45/90 0 Motor Right Leg No Drift, Arm Stays 45/90 0 Limb Ataxia Present 0 Sensory Loss Mild/Mod Sensory Loss 1 Language Aphasia No Aphasia, Normal 0 Dysarthria Normal 0 Extinction and Inattention No Abnormality 0 Total 1 Assessment & Plan Assessment & Plan Problems: (1) Numbness on left side (2) Hypercalcemia Assessment & Plan Plan: CT scan and lab results reviewed with patient. Patient to be discharged to home with f/u to neurology Dr Chaudhary Depart Disposition: HOME, SELF-FDC Meds Active Scripts Cyclobenzaprine Hcl (FLEXERIL) 5 Mg Tablet, 5 MG PO TID, #21 Prov:IAN MYERS MD 01/14/20 Aspirin (ASPIR 81) 81 Mg Tablet.dr, 81 MG PO DAILY for 30 Days Prov:IAN MYERS MD 01/14/20 Cephalexin Monohydrate (KEFLEX) 500 Mg Capsule, 500 MG PO Q12H, #10 Prov:IAN MYERS MD 01/14/20 Meloxicam (MELOXICAM) 7.5 Mg Tablet, 7.5 MG PO DAILY for 7 Days Prov:IAN MYERS MD 01/14/20 Famotidine (FAMOTIDINE) 20 Mg Tab, 20 MG PO BIDAC for 30 Days, TAB Prov:IAN MYERS MD 01/14/20 Reported Medications Linagliptin (TRADJENTA) 5 Mg Tablet, 5 MG PO DAILY 01/13/20 Metformin Hcl (METFORMIN HCL ER) 500 Mg Tab.er.24h, 1000 MG PO BID 01/13/20 Glipizide (GLIPIZIDE) 10 Mg Tablet, 10 MG PO BID 5/1/20 Lisinopril/Hydrochlorothiazide (LISINOPRIL-HCTZ 20-12.5 MG TAB) 1 Each Tablet, 1 TAB PO BID 01/13/20 Fluticasone Propionate (FLUTICASONE PROPIONATE) 16 Gm [place].susp, 2 INH IN DAILY 01/13/20 Paroxetine Hcl (PAROXETINE HCL) 10 Mg Tablet, 10 MG PO DAILY 01/13/20 Alprazolam (ALPRAZOLAM) 0.25 Mg Tablet, 0.25 MG PO DAILY 01/13/20 Medications in the ED Aspirin 81 mg PRN ONCE PO ; Start 01/23/20 at 22:00; Stop 01/23/20 at 22:30; Status MATT MITCHELL DO January 23, 2020 21:52
[2020-01-23 23:57] VITALS: BP 144/89
== END 2020-01-23 23:58 | disposition home or self-care (01) ==
LOC: ER 21:42
DX: R20.0 Anesthesia of skin (principal); E83.52 Hypercalcemia; R07.89 Other chest pain; I10 Essential (primary) hypertension; E11.9 Type 2 diabetes mellitus without complications; F41.9 Anxiety disorder, unspecified
CPT/HCPCS: 36415; 70450; 71046; 80053; 82550; 82553; 84484; 85025; 99284